=== PATIENT | female | born 1960 | race American Indian/Alaskan Native ===

== ENCOUNTER 2017-03-05 14:17 | Outpatient (CLI) | payer OTHER ==
--- NOTE | 2017-03-05 15:13 | XRay Report ---
ABDOMINAL SERIES WITH CXR THREE VIEWS: 03/05/17 14:17:00 CLINICAL: Abdominal pain. FINDINGS: Supine upright views demonstrate a normal bowel gas pattern with a large volume of stool throughout the colon and in the rectum. No distended small bowel or air-fluid levels. Minimal colon distention. No pneumoperitoneum. No mass or suspicious calcifications. Phleboliths in the pelvis. The bones and soft tissues are normal. The chest is negative. IMPRESSION: Negative chest. Negative abdomen with abundant stool.
== END 2017-03-05 14:18 | disposition home or self-care (01) ==
LOC: SPVIMAG 14:17
PROVIDERS: ATTEND Family Medicine
DX: K59.00 Constipation, unspecified (principal); R10.9 Unspecified abdominal pain; I87.8 Other specified disorders of veins
CPT/HCPCS: 74022

== ENCOUNTER 2017-04-02 08:33 | Outpatient (CLI) | payer OTHER ==
--- NOTE | 2017-04-02 09:50 | Ultrasound Report ---
ABDOMINAL ULTRASOUND: 04/02/17 08:33:00 CLINICAL: Abdominal pain. FINDINGS: High-resolution ultrasound demonstrated a normal size liver with moderate diffuse increased echogenicity. No liver mass. Normal hepatic vasculature and inferior vena cava. Normal gallbladder and bile ducts. The gallbladder wall measures 2.1 mm thick. The common bile duct measures 3.1 mm diameter. The pancreas was not well imaged because of bowel gas. The abdominal aorta measures 2.4 cm maximum diameter. A normal spleen measures 8.3cm. Normal kidneys with normal echogenicity and normal non-dilated renal collecting systems and ureters. The right kidney measures 10.1 x 5.1 x 5.0cm. The left kidney measures 10.2 x 6.9 x 5.0 cm. No renal mass or calculus. No ascites or mass. IMPRESSION: 1. Increased liver echogenicity, most likely due to hepatic steatosis. 2. Normal biliary tract. 3. The pancreas was not imaged. 4. Normal spleen and kidneys.
== END 2017-04-02 08:34 | disposition home or self-care (01) ==
LOC: SPVWC 08:33
PROVIDERS: ATTEND Internal Medicine Gastroenterology
DX: Z12.11 Encounter for screening for malignant neoplasm of colon (principal); K59.09 Other constipation; K30 Functional dyspepsia; R19.5 Other fecal abnormalities; R10.12 Left upper quadrant pain
CPT/HCPCS: 76700

== ENCOUNTER 2017-05-27 06:27 | Day surgery (SDC) | payer OTHER ==
--- NOTE | 2017-05-27 07:18 | Anesthesia Day of Surgery ---
Anesthesia Day of Surgery - Day of Surgery Patient Examined: Yes Patient H&P Reviewed: Yes Patient is NPO: Yes
--- NOTE | 2017-05-27 07:18 | Anesthesia Consultation ---
Anesthesia Consult and Med Hx Date of service: 05/27/17 - Airway Anesthetic Teeth Evaluation: Good ROM Head & Neck: Adequate Mental/Hyoid Distance: Adequate Mallampati Class: Class II Intubation Access Assessment: Probably Good - Pulmonary Hx Asthma: Yes - Cardiovascular System Hx Coronary Artery Disease: No (high cholesterol) - Gastrointestinal Hx Gastroesophageal Reflux Disease: Yes
[2017-05-27] MEDS ORDERED: WATER FOR IRRIG STERILE IR ONE (07:21)
[2017-05-27] MEDS ORDERED: WATER FOR IRRIG STERILE ONE (07:21)
[2017-05-27] MEDS ORDERED: DIPRIVAN 10 MG/ML IV ONE ×3 (07:36)
[2017-05-27] MEDS ORDERED: NACL 0.9% 1000 ML 1,000 ML IV SCH (08:00)
--- NOTE | 2017-05-27 08:13 | Short Stay Summary ---
Short Stay Documentation - Allergies and Medications Current Medications: Allergies No Known Allergies Allergy (Verified 05/27/17 07:05) Active Medications Sodium Chloride (Nacl 0.9% 1000 Ml) 1,000 mls @ 50 mls/hr IV DIRECT TINY Last Admin: 05/27/17 07:35 Dose: 50 mls/hr - Brief post op/procedure progress note Date of procedure: 05/27/17 Pre-op diagnosis: 1. Epigastric pian 2. GERD 3. Colon cancer screening Post-op diagnosis: same (EGD: 1. GERD 2. Gastritis 3. Deformed pylorus 4. Gastric node Colonoscopy: incomplete due to a poor prep) Procedure: 1. EGD with biopsy 2. Incomplete colonoscopy due to a poor prep Anesthesia: MAC Findings: as above Surgeon: CODY WILLS Estimated blood loss: none Pathology: list (1. Antrum 2. Gastric node body of stomach) Specimen disposition: to lab Condition: stable - Disposition Condition at discharge: Stable Disposition: DC- TO HOME OR SELFCARE Short Stay Discharge Plan Activity: no restrictions Weight Bearing Status: Full Weight Bearing Diet: regular, diabetic Follow up with: CASI HAMM MD [Primary Care Provider] - 7 Days
[2017-05-27 08:44] VITALS: BP 139/78
--- NOTE | 2017-05-27 11:57 | Post Anesthesia Evaluation ---
- Post Anesthesia Evaluation Patient Participated: Yes Airway Patent: Yes Stable Respiratory Function: Yes Nausea/Vomiting: No Temp > 96.8F: Yes Pain Manageable: Yes Adequeate Hydration: Yes Anesthesia Complications: No
== END 2017-05-27 06:28 | disposition home or self-care (01) ==
LOC: GIO 06:27
PROVIDERS: ATTEND Internal Medicine Gastroenterology
DX: Z12.11 Encounter for screening for malignant neoplasm of colon (principal); K59.09 Other constipation; K29.70 Gastritis, unspecified, without bleeding; B96.81 Helicobacter pylori [H. pylori] as the cause of diseases classified elsewhere; K21.9 Gastro-esophageal reflux disease without esophagitis; K31.9 Disease of stomach and duodenum, unspecified; K29.80 Duodenitis without bleeding
CPT/HCPCS: 43239; 82962; 88305; 88342; G0121; J2704; J7030

== ENCOUNTER 2017-07-05 15:22 | Outpatient (CLI) | payer OTHER ==
--- NOTE | 2017-07-05 15:36 | XRay Report ---
ROUTINE CHEST, TWO VIEWS: HISTORY: Short of breath, asthma. The trachea, heart, mediastinal contour, lung mayes and bony thorax are unremarkable. IMPRESSION: Unremarkable chest x-ray.
== END 2017-07-05 15:23 | disposition home or self-care (01) ==
LOC: SPVIMAG 15:22
PROVIDERS: ATTEND Family Medicine
DX: J45.909 Unspecified asthma, uncomplicated (principal); J20.9 Acute bronchitis, unspecified
CPT/HCPCS: 71046

== ENCOUNTER 2019-06-26 08:19 | Outpatient (CLI) | payer OTHER ==
--- NOTE | 2019-06-26 11:45 | Mammography Report ---
DIGITAL SCREENING MAMMOGRAM WITH CAD, 06/26/2019 INDICATION: Routine screening mammography. TECHNIQUE: Digital bilateral 2D mammography was obtained in the craniocaudal and mediolateral obliq ue projections. This examination was interpreted with the benefit of Computer-Aided Detection analysi s. COMPARISON: 03/18/2018 FINDINGS: Breast Density: The breasts are almost entirely fatty. A right focal asymmetry requires additional imaging. There are questionable associated calcifications . There is no evidence of dominant mass, suspicious calcifications or architectural distortion in the left breast. IMPRESSION: Right asymmetry requiring additional imaging. Recommend recall for right spot magnificati on views and right breast ultrasound if needed. Follow up recommendation: Special View: Mag Category 0: Incomplete. Needs additional imaging evaluation and/or prior mammograms for comparison. A "normal" or negative report should not discourage follow up or biopsy of a clinically significant f inding. A written summary of these findings will be mailed to the patient. The patient will be entered into a mammography reporting system which will generate a reminder letter for the patient's next appointmen t at the appropriate interval. The [employer] recommends yearly mammograms starting at age 40 and continuing as l scotty as a woman is in good health. Breast MRI is recommended for women with an approximate 20-25% or greater lifetime risk of breast cancer, including women with a strong family history of breast or ova félix cancer or who have been treated for Hodgkin's disease. Signer Name: Konstantin Parks MD Signed: 06/26/2019 11:41 AM Workstation Name: [id number]
== END 2019-06-26 08:20 | disposition home or self-care (01) ==
LOC: SPVWC 08:19
PROVIDERS: ATTEND Family Medicine
DX: Z12.31 Encounter for screening mammogram for malignant neoplasm of breast (principal); N64.89 Other specified disorders of breast
CPT/HCPCS: 77067

== ENCOUNTER 2019-07-20 14:08 | Outpatient (CLI) | payer OTHER ==
--- NOTE | 2019-07-20 15:02 | Mammography Report ---
DIGITAL DIAGNOSTIC MAMMOGRAM WITH CAD, 07/20/2019 INDICATION: Recall for asymmetries identified at screening. ABNORMAL MAMMOGRAM TECHNIQUE: Digital right mammographic imaging was performed. Magnification views were obtained. This examination was interpreted with the benefit of Computer-aided Detection analysis. COMPARISON: 06/26/2019 FINDINGS: Breast Density: The breasts are almost entirely fatty. Spot magnification MLO and CC views were performed and are negative. Satisfactory effacement of asymm etries. IMPRESSION: No mammographic evidence of malignancy. Follow up recommendation: Routine yearly BI-RADS Category 1: Negative. A "normal" or negative report should not discourage follow up or biopsy of a clinically significant f inding. A written summary of these findings will be mailed to the patient. The patient will be entered into a mammography reporting system which will generate a reminder letter for the patient's next appointmen t at the appropriate interval. According to the [employer], yearly mammograms are recommended starting at age 40 and continuing as long as a woman is in good health. Breast MRI is recommended for women with an candice roximately 20-25% or greater lifetime risk of breast cancer, including women with a strong family his tory of breast or ovarian cancer and women who have been treated for Hodgkin's disease. Signer Name: Konstantin Parks MD Signed: 07/20/2019 2:58 PM Workstation Name: [id number]
== END 2019-07-20 14:09 | disposition home or self-care (01) ==
LOC: SPVWC 14:08
PROVIDERS: ATTEND Family Medicine
DX: R92.8 Other abnormal and inconclusive findings on diagnostic imaging of breast (principal)